=== PATIENT | female | born 1970 | race Caucasian/White ===

== ENCOUNTER 2016-11-08 16:00 | Emergency (ER) | payer SELFPAY ==
[2016-11-08] MEDS ORDERED: ceFAZolin 1 GM in Premix Bag 1 BAG IV ONE (18:27)
[2016-11-08] MEDS ORDERED: Sodium Chloride 0.9% 10 ML Syringe FLUSH PRN (18:27)
[2016-11-08] MEDS ORDERED: Clindamycin Phosphate 900 MG in Sodium Chloride 0.9% 100 ML IV ONE (18:27)
[2016-11-08] MEDS ORDERED: Lidocaine 2% Viscous Solution 15 ML Cup MUCMEM ONE (18:28)
[2016-11-08] MEDS ORDERED: Ketorolac 30 MG/ML SDV IVPUSH ONE (18:29)
--- NOTE | 2016-11-08 18:41 | EDM.PDOC ---
Scribed by Nikole Mckeon 11/08/16 1838 for Curtis Hoyt MD ED HPI GENERAL MEDICAL PROBLEM - General Chief Complaint: ENT Problem Stated Complaint: TOOTH INFECTION Time Seen by Provider: 11/08/16 18:25 Source of Information: Reports: Patient, RN, RN Notes Reviewed History Limitations: Reports: No Limitations - History of Present Illness INITIAL COMMENTS - FREE TEXT/NARRATIVE: Patient arrives by POV with complaint of right sided dental pain at the lower molars. Patient states that the tooth and gums painful several days ago, but gum worse yesterday when she first noticed swelling of the gums. Today she developed swelling with mild redness to the right mandibular face. Feels the area has increased warmth. Denies fevers or chills. Denies any drainage from the tooth. Location: Reports: Other (mouth) Quality: Reports: Ache Severity: Severe Improves with: Reports: None Worsens with: Reports: None Associated Symptoms: Reports: No Other Symptoms Treatments STEEL UNLOADER: Reports: Aspirin Right Oral/Mouth Pain Score (Numeric/FACES): 8 - Related Data Allergies Allergy/AdvReac Type Severity Reaction Status Date / Time No Known Allergies Allergy Verified 11/08/16 16:50 Home Meds: Home Meds Aspirin 325 mg PO Q4H PRN 11/08/16 [History] Omeprazole Magnesium [Prilosec Otc] 20 mg PO DAILY 11/08/16 [History] Past Medical History - Past Health History Medical/Surgical History: Denies Medical/Surgical History Social & Family History - Family History Family Medical History: Noncontributory - Tobacco Use Smoking Status *Q: Current Every Day Smoker Years of Tobacco use: 10 Packs/Tins Daily: 20 - Caffeine Use Caffeine Use: Reports: Soda - Recreational Drug Use Recreational Drug Use: No ED ROS ENT - Review of Systems Review Of Systems: ROS reveals no pertinent complaints other than HPI. ED EXAM, ENT - Physical Exam Exam: See Below Exam Limited By: No Limitations General Appearance: Alert, WD/WN, No Apparent Distress Eye Exam: Bilateral Eye: Normal Inspection Ears: Normal External Exam, Normal Canal, Hearing Grossly Normal, Normal TMs Nose: Normal Inspection, Normal Mucousa, No Blood Mouth/Throat: Normal Lips, Normal Oropharynx, Dental Abcess (right mandibular molar), Dental Pain, Dental Tenderness, Gum Swelling Head: Atraumatic, Facial Swelling (right side with increased warmth and erythema.), Facial Tenderness Neck: Normal Inspection, Supple, Non-Tender, Full Range of Motion Respiratory/Chest: No Respiratory Distress, Lungs Clear, Normal Breath Sounds, No Accessory Muscle Use, Chest Non-Tender Cardiovascular: Normal Peripheral Pulses, Regular Rate, Rhythm, No Edema, No Gallop, No JVD, No Murmur, No Rub Neurological: Alert, Oriented, CN II-XII Intact, Normal Cognition, Normal Gait, No Motor/Sensory Deficits Psychiatric: Normal Affect, Normal Mood Course - Vital Signs Last Recorded V/S: Last Vital Signs Temp 36.1 C 11/08/16 16:45 Pulse 119 H 11/08/16 16:45 Resp 16 11/08/16 16:45 BP 156/103 H 11/08/16 16:45 Pulse Ox 100 11/08/16 16:45 - Orders/Labs/Meds Orders: Active Orders 24 hr Category Date Time Status Peripheral IV Care [RC] . DIRECTED Care 11/08/16 18:27 Active Clindamycin Phosphate [Cleocin] 900 mg Med 11/08/16 18:27 Active Sodium Chloride 0.9% [Normal Saline] 100 ml IV ONETIME Sodium Chloride 0.9% [Saline Flush] Med 11/08/16 18:27 Active 10 ml FLUSH ASDIRECTED PRN ceFAZolin [Ancef] 1 gm Med 11/08/16 18:27 Active Premix Bag 1 bag IV ONETIME Peripheral IV Insertion Adult [OM.PC] Stat Oth 11/08/16 18:26 Ordered Medication Orders Cefazolin Sodium/Dextrose 1 gm (/ Premix) 50 mls @ 100 mls/hr IV ONETIME ONE Stop: 11/08/16 18:56 Clindamycin Phosphate 900 mg/ (Sodium Chloride) 106 mls @ 200 mls/hr IV ONETIME ONE Stop: 11/08/16 18:58 Sodium Chloride (Saline Flush) 10 ml FLUSH ASDIRECTED PRN PRN Reason: Keep Vein Open Meds: Medications Generic Name Dose Route Start Last Admin Trade Name Freq PRN Reason Stop Dose Admin Cefazolin Sodium/Dextrose 1 gm 50 mls @ 100 mls/hr 11/08/16 18:27 / Premix IV 11/08/16 18:56 ONETIME ONE Clindamycin Phosphate 900 mg/ 106 mls @ 200 mls/hr 11/08/16 18:27 Sodium Chloride IV 11/08/16 18:58 ONETIME ONE Sodium Chloride 10 ml 11/08/16 18:27 Saline Flush FLUSH ASDIRECTED PRN Keep Vein Open Discontinued Medications Generic Name Dose Route Start Last Admin Trade Name Richq PRN Reason Stop Dose Admin Ketorolac Tromethamine 30 mg 11/08/16 18:29 Toradol IVPUSH 11/08/16 18:30 ONETIME ONE Lidocaine HCl 15 ml 11/08/16 18:28 Xylocaine 2% Viscous MUCMEM 11/08/16 18:29 ONETIME ONE Departure - Departure Time of Disposition: 19:50 Disposition: Home, Self-Care 01 Condition: Fair Clinical Impression: Dental abscess, Facial cellulitis - Discharge Information Instructions: Dental Abscess, [id number] Forms: ED Department Discharge Additional Instructions: RX: Clindamycin 300mg. RX: Amoxicillin 500mg. Viscous Lidocaine gel 2%. Follow up with dentist tomorrow or the next day for recheck. - My Orders Last 24 Hours: My Active Orders 11/08/16 18:26 Peripheral IV Insertion Adult [OM.PC] Stat 11/08/16 18:27 Peripheral IV Care [RC] . DIRECTED Clindamycin Phosphate [Cleocin] 900 mg Sodium Chloride 0.9% [Normal Saline] 100 ml IV ONETIME Sodium Chloride 0.9% [Saline Flush] 10 ml FLUSH ASDIRECTED PRN ceFAZolin [Ancef] 1 gm Premix Bag 1 bag IV ONETIME - Assessment/Plan Last 24 Hours: My Active Orders 11/08/16 18:26 Peripheral IV Insertion Adult [OM.PC] Stat 11/08/16 18:27 Peripheral IV Care [RC] . DIRECTED Clindamycin Phosphate [Cleocin] 900 mg Sodium Chloride 0.9% [Normal Saline] 100 ml IV ONETIME Sodium Chloride 0.9% [Saline Flush] 10 ml FLUSH ASDIRECTED PRN ceFAZolin [Ancef] 1 gm Premix Bag 1 bag IV ONETIME I have read and agree with the documentation that has been completed regarding this visit. By signing this record, I attest that the documentation was completed in my physical presence and is an accurate record of the encounter.
[2016-11-08 18:43] VITALS: BP 148/92
== END 2016-11-08 20:07 | disposition home or self-care (01) ==
LOC: DL.ED 16:00
DX: K04.7 Periapical abscess without sinus (principal); L03.211 Cellulitis of face; F17.210 Nicotine dependence, cigarettes, uncomplicated; Z79.899 Other long term (current) drug therapy
CPT/HCPCS: 96365; 96367; 96375; 99282; A9270; J0690; J1885; J7050; S0077